=== PATIENT | male | born 2000 | race Caucasian/White ===

== ENCOUNTER 2018-03-20 15:59 | Emergency (ER) | payer MEDICAID, OTHER ==
[2018-03-20 16:10] VITALS: TEMP 98.5
[2018-03-20] MEDS ORDERED: Sodium Chloride 0.9% 1,000 ML IV STA (17:10)
--- NOTE | 2018-03-20 17:11 | ED PDOC ---
HPI: Abdomen Time Seen by Provider: 03/20/18 16:19 Chief Complaint (Nursing): Chest Pain Chief Complaint (Provider): Flank pain History Per: Patient Additional Complaint(s): 18 yo male, no PMH, presents ot ED with complaints of left flank pain x 2 days now. Pt points to lower back when asked where pain is however. Pt reports he has history of kidney stones in the past and is concerned they might be back. Pt denies nay hematuria or dysuria, no abdominal pain or groin [ain, no fever or chills. Pt also reports abdominal distention, with intermittent constipation for the last 2 days as well. Last BM was yesterday Past Medical History Reviewed: Nursing Documentation, Vital Signs Vital Signs: Last Vital Signs Temp 98.5 F 03/20/18 16:07 Pulse 85 03/20/18 16:51 Resp 16 03/20/18 16:51 BP 118/70 03/20/18 16:51 Pulse Ox 99 03/20/18 16:51 - Medical History PMH: Kidney Stones - Surgical History Surgical History: No Surg Hx - Family History Family History: States: Unknown Family Hx - Living Arrangements Living Arrangements: With Family - Social History Current smoker - smoking cessation education provided: No Alcohol: None Drugs: Denies - Immunization History Hx Tetanus Toxoid Vaccination: No Hx Influenza Vaccination: No Hx Pneumococcal Vaccination: No - Home Medications Home Medications: Ambulatory Orders Medication Instructions Recorded Cyclobenzaprine [Cyclobenzaprine 10 mg PO TID #20 tab 03/20/18 HCl] Ibuprofen [Motrin] 600 mg PO Q6 #20 tab 03/20/18 - Allergies Allergies/Adverse Reactions: Allergies Allergy/AdvReac Type Severity Reaction Status Date / Time No Known Allergies Allergy Verified 03/20/18 16:07 Review of Systems ROS Statement: Except As Marked, All Systems Reviewed And Found Negative Gastrointestinal: Positive for: Abdominal Pain, Constipation Physical Exam - Reviewed Nursing Documentation Reviewed: Yes Vital Signs Reviewed: Yes - Physical Exam Appears: Positive for: Well, Non-toxic, No Acute Distress Head Exam: Positive for: ATRAUMATIC, NORMAL INSPECTION, NORMOCEPHALIC Skin: Positive for: Normal Color, Warm, DRY Eye Exam: Positive for: EOMI, Normal appearance, PERRL ENT: Positive for: Normal ENT Inspection Neck: Positive for: Normal, Painless ROM Cardiovascular/Chest: Positive for: Regular Rate, Rhythm Respiratory: Positive for: CNT, Normal Breath Sounds Gastrointestinal/Abdominal: Positive for: Normal Exam, Soft. Negative for: Tenderness, Distended, Guarding Back: Positive for: Normal Inspection. Negative for: L CVA Tenderness, R CVA Tenderness Extremity: Positive for: Normal ROM Neurologic/Psych: Positive for: Alert, Oriented - Laboratory Results Result Diagrams: 03/20/18 17:16 03/20/18 17:16 - ECG O2 Sat by Pulse Oximetry: 99 Medical Decision Making Medical Decision Making: IV access established and treatment initiated with Toradol good relief obtained Dip (-) blood, leuks or nites Diagnostics resulted and reviewed with Pt who demonstrated full understanding Pt rpeorts no pain on r-eval. Physical remains benign stable for discharge at this time Disposition - Clinical Impression Clinical Impression: Back pain, Constipation - Patient ED Disposition Is Patient to be Admitted: No - Disposition Disposition: Routine/Home Disposition Time: 19:12 Condition: STABLE Prescriptions: Cyclobenzaprine [Cyclobenzaprine HCl] 10 mg PO TID #20 tab Ibuprofen [Motrin] 600 mg PO Q6 #20 tab Instructions: Constipation in Adults, Upper Back Pain Forms: [facility] (Belarusian)
[2018-03-20 17:25] LABS: BASO % 0.3 % (0.0-2.0); EOS # 0.1 K/uL (0.0-0.7); EOS % 1.5 % (0.0-4.0); HEMOGLOBIN 16.9 g/dL (12.0-18.0); LYMPH # 1.4 K/uL (1.0-4.3); LYMPH % 20.8 % (20.0-40.0); MEAN CELL VOLUME 83.3 fl (80.0-94.0); MEAN CORPUSCULAR HEMOGLOBIN 29.1 pg (27.0-31.0); MEAN CORPUSCULAR HGB CONC 34.9 g/dL (33.0-37.0); MONO # 0.6 K/uL (0.0-0.8); MONO % 8.3 % (0.0-10.0); NEUT # 4.8 K/uL (1.8-7.0); NEUT % 69.1 % (50.0-75.0); NRBC % 0.2 % (0.0-0.0); RBC 5.81 Mil/uL (4.40-5.90); RED CELL DISTRIBUTION WIDTH 13.3 % (11.5-14.5); WHITE BLOOD COUNT 6.9 K/uL (4.8-10.8)
[2018-03-20 17:40] LABS: ALB/GLOB RATIO 1.1 (1.0-2.1); ALBUMIN 4.2 g/dL (3.5-5.0); ALT/SGPT 34 U/L (21-72); AMYLASE 92 U/L (30-110); AST/SGOT 35 U/L (17-59); BLOOD UREA NITROGEN 9 mg/dl (9-20); CALCIUM 9.4 mg/dL (8.4-10.2); GFR NON-AFRICAN AMERICAN > 60; LIPASE 69 U/L (23-300)
[2018-03-20 18:48] VITALS: BP 117/63; PULSE 69; RESP 26
[2018-03-20 19:10] VITALS: O2SAT 99
[2018-03-20 19:19] LABS: SQUAMOUS EPITHIAL 1 /hpf (0-5); URINE BACTERIA RARE (<OCC); URINE BILIRUBIN NEGATIVE (NEGATIVE); URINE BLOOD SMALL (NEGATIVE); URINE CLARITY SLIGHTY-CLOUDY (Clear); URINE COLOR YELLOW (YELLOW); URINE GLUCOSE (UA) NEG (Normal); URINE LEUKOCYTE ESTERASE NEG Leu/uL (Negative); URINE PROTEIN NEGATIVE (NEGATIVE); URINE UROBILINOGEN 0.2-1.0 mg/dL (0.2-1.0)
--- NOTE | 2018-03-21 12:25 | CT ---
Date of service: 03/20/2018 PROCEDURE: CT Abdomen and Pelvis without intravenous contrast HISTORY: b.l flank pain COMPARISON: 06/27/2014 TECHNIQUE: Without contrast. CT scan of the abdomen and pelvis was performed without contrast. Sagittal and coronal reformatted images were obtained.. Contrast dose: No contrast Radiation dose: Total exam DLP = 916 mGy-cm. This CT exam was performed using one or more of the following dose reduction techniques: Automated exposure control, adjustment of the mA and/or kV according to patient size, and/or use of iterative reconstruction technique. FINDINGS: LOWER THORAX: Minor subsegmental atelectasis is seen inferiorly at the lung bases. No pleural effusion is seen. No pericardial effusion is noted. Visualized esophagus is unremarkable. LIVER: Noncontrast images of the liver show no evidence of focal mass or intrahepatic ductal dilatation. GALLBLADDER AND BILE DUCTS: Gallbladder is contracted without wall thickening or gallstones. PANCREAS: Unremarkable. No gross lesion or ductal dilatation. SPLEEN: Unremarkable. ADRENALS: Unremarkable. No mass. KIDNEYS AND URETERS: No renal calculus is seen. No ureteral dilatation is noted. No perinephric inflammatory changes are seen. Kidneys are normal in size. VASCULATURE: Unremarkable. No aortic aneurysm. BOWEL: Unremarkable. No obstruction. No gross mural thickening. APPENDIX: Unremarkable. Normal appendix. PERITONEUM: No free intraperitoneal air. No ascites is seen. LYMPH NODES: Unremarkable. No enlarged lymph nodes. BLADDER: Unremarkable. REPRODUCTIVE: Unremarkable. BONES: No acute fracture. OTHER FINDINGS: None. IMPRESSION: Unremarkable non contrast enhanced CT of the abdomen and pelvis. This agrees with preliminary report.
== END 2018-03-20 19:03 | disposition home or self-care (01) ==
LOC: H.ER 15:59
DX: K59.00 Constipation, unspecified (principal); M54.9 Dorsalgia, unspecified
CPT/HCPCS: 74176; 80053; 81003; 82150; 83690; 85025; 96374; 99284; J1885; J7030

== ENCOUNTER 2018-04-07 21:43 | Emergency (ER) | payer OTHER ==
--- NOTE | 2018-04-07 22:19 | ED PDOC ---
HPI: Male Pain Time Seen by Provider: 04/07/18 22:03 Chief Complaint (Nursing): Male Genitourinary Chief Complaint (Provider): testicular pain History Per: Patient History/Exam Limitations: no limitations Onset/Duration Of Symptoms: Days (2) Current Symptoms Are (Timing): Still Present Quality Of Discomfort: "Pain" Additional Complaint(s): 18 y/o male presents for evaluation of left testicular pain x 2 days. Patient states he was lifting a heavy box at work and felt slight discomfort at that time and since then pain has gotten worse. Denies fever, nausea/vomiting, abdominal pain, changes in bowel movements, dysuria, hematuria. No medication taken for relief thus far Past Medical History Reviewed: Historical Data, Nursing Documentation, Vital Signs Vital Signs: Last Vital Signs Temp 98.2 F 04/07/18 21:47 Pulse 77 04/07/18 21:47 Resp 16 04/07/18 21:47 BP 139/79 04/07/18 21:47 Pulse Ox 97 04/07/18 21:47 - Medical History PMH: Kidney Stones - Surgical History Surgical History: No Surg Hx - Family History Family History: States: Unknown Family Hx - Living Arrangements Living Arrangements: With Family - Immunization History Hx Tetanus Toxoid Vaccination: No Hx Influenza Vaccination: No Hx Pneumococcal Vaccination: No - Home Medications Home Medications: Ambulatory Orders Medication Instructions Recorded Cyclobenzaprine [Cyclobenzaprine 10 mg PO TID #20 tab 03/20/18 HCl] Ibuprofen [Motrin] 600 mg PO Q6 #20 tab 03/20/18 Naproxen [Naprosyn] 500 mg PO Q12 PRN #20 tablet 04/08/18 - Allergies Allergies/Adverse Reactions: Allergies Allergy/AdvReac Type Severity Reaction Status Date / Time No Known Allergies Allergy Verified 04/07/18 21:47 Review of Systems ROS Statement: Except As Marked, All Systems Reviewed And Found Negative Genitourinary Male: Positive for: Scrotal Pain (left) Physical Exam - Reviewed Nursing Documentation Reviewed: Yes Vital Signs Reviewed: Yes - Physical Exam Appears: Positive for: Well, Non-toxic, No Acute Distress Head Exam: Positive for: ATRAUMATIC, NORMAL INSPECTION, NORMOCEPHALIC Skin: Positive for: Normal Color Eye Exam: Positive for: Normal appearance ENT: Positive for: Normal ENT Inspection Cardiovascular/Chest: Positive for: Regular Rate, Rhythm Respiratory: Positive for: Normal Breath Sounds Gastrointestinal/Abdominal: Positive for: Normal Exam, Bowel Sounds, Soft. 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 Negative for: epididymal tenderness, erythema, inguinal tenderness, scrotum tenderness (R), scrotum tenderness (L), t esticular tenderness (R), urethral discharge Extremity: Positive for: Normal ROM Neurologic/Psych: Positive for: Alert, Oriented (x3) - Laboratory Results Result Diagrams: 04/07/18 22:48 04/07/18 22:48 - ECG O2 Sat by Pulse Oximetry: 97 - Progress ED Course And Treament: labs, urine, testicular u/s, IV toradol USArad testicular u/s impression: mild left hydrocele, otherwise unremarkable exam On re-eval, patient states he is feeling better Patient educated on findings, discharged with rx Naproxen Advised follow up urology Warm compresses/ice Return precautions given Disposition - Clinical Impression Clinical Impression: Testicular pain, left, Hydrocele - Patient ED Disposition Is Patient to be Admitted: No Counseled Patient/Family Regarding: Studies Performed, Diagnosis, Need For Followup, Rx Given - Disposition Referrals: Isac Finnegan MD [Medical Doctor] - Disposition: Routine/Home Disposition Time: 01:36 Condition: IMPROVED Prescriptions: Naproxen [Naprosyn] 500 mg PO Q12 PRN #20 tablet PRN Reason: Pain, Moderate (4-7) Instructions: Hydrocele Forms: [facility] (Korean), [facility] ED School/Work Excuse
[2018-04-07 23:23] LABS: BASO % 0.3 % (0.0-2.0); EOS # 0.5 K/uL (0.0-0.7); EOS % 3.7 % (0.0-4.0); HEMOGLOBIN 15.3 g/dL (12.0-18.0); LYMPH # 3.2 K/uL (1.0-4.3); LYMPH % 25.4 % (20.0-40.0); MEAN CELL VOLUME 84.3 fl (80.0-94.0); MEAN CORPUSCULAR HEMOGLOBIN 28.7 pg (27.0-31.0); MEAN CORPUSCULAR HGB CONC 34.1 g/dL (33.0-37.0); MONO # 0.7 K/uL (0.0-0.8); MONO % 5.8 % (0.0-10.0); NEUT # 8.1 K/uL (1.8-7.0); NEUT % 64.8 % (50.0-75.0); NRBC % 0.1 % (0.0-0.0); RBC 5.32 Mil/uL (4.40-5.90); RED CELL DISTRIBUTION WIDTH 13.4 % (11.5-14.5); WHITE BLOOD COUNT 12.4 K/uL (4.8-10.8)
[2018-04-07 23:27] LABS: SQUAMOUS EPITHIAL 2 /hpf (0-5); URINE BILIRUBIN NEGATIVE (NEGATIVE); URINE BLOOD NEGATIVE (NEGATIVE); URINE CLARITY CLEAR (Clear); URINE COLOR YELLOW (YELLOW); URINE GLUCOSE (UA) NEG (Normal); URINE LEUKOCYTE ESTERASE NEG Leu/uL (Negative); URINE PROTEIN NEGATIVE (NEGATIVE)
[2018-04-08 00:04] LABS: ALB/GLOB RATIO 1.2 (1.0-2.1); ALBUMIN 4.3 g/dL (3.5-5.0); BLOOD UREA NITROGEN 16 mg/dl (9-20); CALCIUM 9.5 mg/dL (8.4-10.2); GFR NON-AFRICAN AMERICAN > 60
[2018-04-08 00:05] LABS: ALT/SGPT 33 U/L (21-72); AST/SGOT 51 U/L (17-59)
[2018-04-08 02:24] VITALS: BP 108/56; PULSE 65; RESP 18; TEMP 98.6; O2SAT 96
--- NOTE | 2018-04-08 10:46 | US ---
Date of service: 04/07/2018 HISTORY: left testicular pain after heaving lifting TECHNIQUE: Realtime sonography through the scrotum with color and doppler flow. COMPARISON: None Available. FINDINGS: RIGHT TESTICLE: Measures 2.5 x 3.4 x 5.9 cm. Normal echotexture and flow. RIGHT EPIDIDYMIS: Epididymal head measures 0.6 x 1 x 1.1 cm. Grossly unremarkable appearance with normal flow. LEFT TESTICLE: Measures 2.2 x 3.9 x 5.3 cm. Normal echotexture and flow. LEFT EPIDIDYMIS: Epididymal head measures cm. Grossly unremarkable appearance with normal flow. HYDROCELE: None. VARICOCELE: None. OTHER FINDINGS: None. IMPRESSION: Negative study for epididymitis, orchitis, torsion or other acute/significant pathologic process. Concordant findings (preliminary report) provided by [facility].
== END 2018-04-08 01:50 | disposition home or self-care (01) ==
LOC: H.ER 21:43
DX: N50.812 Left testicular pain (principal); N43.2 Other hydrocele; X50.0XXA Overexertion from strenuous movement or load, initial encounter; Y99.0 Civilian activity done for income or pay
CPT/HCPCS: 80053; 81003; 85025; 93975; 99284; J1885